=== PATIENT | male | born 1975 | race Hispanic/Latino ===

== ENCOUNTER 2021-12-02 10:17 | Emergency (ER) | payer SELFPAY ==
--- NOTE | 2021-12-02 13:10 | Emergency Department Report ---
- General Chief complaint: Skin/Abscess/Foreign Body Stated complaint: ABSCESS IN MOUTH Time Seen by Provider: 12/02/21 11:55 Source: patient Mode of arrival: Ambulatory Limitations: No Limitations - History of Present Illness Initial comments: Patient presents with right jaw abscess. Reports had that right lower tooth removed last week by Dr. Jordan HUFFMAN, and was told he needed to come to the emergency department. Patient reports has been having swelling in that area for about a week without improvement despite taking amoxicillin and ciprofloxacin. He denies fever or chills, no headache dizziness or vision changes, no nausea vomiting abdominal pain, he denies prior history of antibiotic resistance, Quality: stabbing, aching Consistency: constant Improves with: none Worsens with: none Associated symptoms: denies other symptoms - Related Data Previous Rx's Medication Instructions Recorded Last Taken Type Hydrocortisone 2.5% [Hytone 2.5% 1 applicatio TP TID #30 gm 10/05/14 Unknown Rx CREAM] Promethazine [Phenergan] 25 mg PO Q6H PRN #12 tablet 10/05/14 Unknown Rx Clindamycin [Clindamycin CAP] 300 mg PO Q8H 10 Days cap 12/02/21 Unknown Rx Ibuprofen [Motrin 800 MG tab] 800 mg PO Q8HR PRN #30 tablet 12/02/21 Unknown Rx Allergies Allergy/AdvReac Type Severity Reaction Status Date / Time No Known Allergies Allergy Verified 12/02/21 10:37 Abscess Boil HPI - HPI Chief Complaint: Skin/Abscess/Foreign Body Stated Complaint: ABSCESS IN MOUTH Time Seen by Provider: 12/02/21 11:55 Home Medications: Previous Rx's Medication Instructions Recorded Last Taken Type Hydrocortisone 2.5% [Hytone 2.5% 1 applicatio TP TID #30 gm 10/05/14 Unknown Rx CREAM] Promethazine [Phenergan] 25 mg PO Q6H PRN #12 tablet 10/05/14 Unknown Rx Clindamycin [Clindamycin CAP] 300 mg PO Q8H 10 Days cap 12/02/21 Unknown Rx Ibuprofen [Motrin 800 MG tab] 800 mg PO Q8HR PRN #30 tablet 12/02/21 Unknown Rx Allergies/Adverse Reactions: Allergies Allergy/AdvReac Type Severity Reaction Status Date / Time No Known Allergies Allergy Verified 12/02/21 10:37 ED Review of Systems ROS: Stated complaint: ABSCESS IN MOUTH Other details as noted in HPI Constitutional: no symptoms reported Eyes: as per HPI Respiratory: no symptoms reported. denies: cough Cardiovascular: denies: chest pain Gastrointestinal: denies: abdominal pain, nausea, vomiting Skin: denies: rash, lesions Neurological: denies: headache, weakness, paresthesias, confusion, abnormal gait ED Past Medical Hx - Surgical History Additional Surgical History: Bladder tumor removed - Social History Smoking Status: Current Every Day Smoker - Medications Home Medications: Home Medications Medication Instructions Recorded Confirmed Last Taken Type Hydrocortisone 2.5% [Hytone 2.5% 1 applicatio TP TID #30 gm 10/05/14 Unknown Rx CREAM] Promethazine [Phenergan] 25 mg PO Q6H PRN #12 tablet 10/05/14 Unknown Rx Clindamycin [Clindamycin CAP] 300 mg PO Q8H 10 Days cap 12/02/21 Unknown Rx Ibuprofen [Motrin 800 MG tab] 800 mg PO Q8HR PRN #30 tablet 12/02/21 Unknown Rx ED Physical Exam - General Limitations: No Limitations General appearance: alert, in no apparent distress - Head Head exam: Present: atraumatic (Abscess right jaw) - Expanded Head Exam Expanded 1 - 3.4 cm firm abscess, no fluctuance, does not extend to the posterior no airway involvement. No drooling - Eye Eye exam: Present: normal appearance, PERRL - ENT ENT exam: Present: mucous membranes moist - Expanded ENT Exam Expanded 1 - Other - Neck Neck exam: Present: normal inspection, full ROM. Absent: tenderness - Respiratory Respiratory exam: Present: normal lung sounds bilaterally - Cardiovascular Cardiovascular Exam: Present: regular rate - GI/Abdominal GI/Abdominal exam: Present: soft. Absent: distended, tenderness - Extremities Exam Extremities exam: Present: normal inspection, full ROM - Back Exam Back exam: Present: normal inspection, full ROM - Neurological Exam Neurological exam: Present: alert, oriented X3, CN II-XII intact, normal gait. Absent: motor sensory deficit - Psychiatric Psychiatric exam: Present: normal affect, normal mood - Skin Skin exam: Present: warm, dry, intact, normal color ED Course Vital Signs 12/02/21 12/02/21 10:32 18:35 Temperature 97.7 F 98.5 F Pulse Rate 84 96 H Respiratory 16 Rate Blood Pressure 121/70 131/86 [Right] O2 Sat by Pulse 100 100 Oximetry ED Medical Decision Making - Lab Data Result diagrams: 12/02/21 12:55 12/02/21 12:55 - Medical Decision Making Right jaw abscess, no localized area for drainage, already under the care of a dentist Dr. Ortega whom I spoke with, states will follow-up as patient already has patient scheduled on Sunday to see his surgeon. Have gone over the CT findings with him as well as labs and IV antibiotics which he agrees with. Otherwise at time of discharge patient is stable he is nontoxic-appearing he is afebrile he is ambulating steadily. Verbalized understanding of everything of discussed. Tolerating secretions oral intake and able to chew. Already has pain management at home, I added some clindamycin and ibuprofen. Patient remained stable nontoxic-appearing, afebrile, ambulating steadily without assistance. Gone over ED findings with patient as well as plan for follow-up. Also discussed return precautions with patient, all questions and concerns addressed. Patient is stable to be discharged follow-up outpatient. Audio voice dictation device used, hence the chart might contain some dictation errors, mispronunciations, wrong spelling and wrong verbiage. Critical care attestation.: If time is entered above; I have spent that time in minutes in the direct care of this critically ill patient, excluding procedure time. ED Disposition Clinical Impression: Dental abscess, Jaw pain Disposition: HOME / SELF CARE / HOMELESS Is pt being admited?: No Does the pt Need Aspirin: No Condition: Stable Instructions: Dental Abscess Additional Instructions: Make sure you follow-up with Dr. Melgar on Sunday he is already expecting the office. Start taking the prescribed clindamycin, warm compress, take your prescribed pain medications as well and do not hesitate to return to the ER if worsening pain, fever, difficulty swallowing or any other concerning symptoms. Prescriptions: Clindamycin [Clindamycin CAP] 300 mg PO Q8H 10 Days cap Ibuprofen [Motrin 800 MG tab] 800 mg PO Q8HR PRN #30 tablet PRN Reason: Pain, Moderate (4-6) Referrals: PRIMARY CARE, [Primary Care Provider] - 3-5 Days
--- NOTE | 2021-12-02 13:36 | Cat Scan Report ---
CT MAXILLOFACIAL WITH CONTRAST INDICATION / CLINICAL INFORMATION: right jaw swelling, fever,pain. TECHNIQUE: All CT scans at this location are performed using CT dose reduction for ALARA by means of automated e xposure control. Or graph contrast dose report: COMPARISON: None available. FINDINGS: ORAL CAVITY: An empty tooth socket is present at tooth #30 (right mandibular first molar). Additional ly noted is a cortical defect along the buccal surface of the mandible adjacent to this empty socket. Extensive soft tissue swelling is observed along the buccal side of the mandible in this location. I n addition there is a well-circumscribed low-attenuation collection along the inferior aspect of the mandible which measures about 2.9 x 1.3 cm in transverse dimension by 1.8 cm in superior-inferior dim ension. This represents an odontogenic abscess. Inflammatory change/phlegmon extends along the inferi or surface of the body of the mandible extending back up into the floor the mouth. SUPRAHYOID NECK: As noted above there is an odontogenic abscess along the inferior aspect of the body of the mandible on the right. There is adjacent thickening of the platysma muscle and infiltrative c hanges in the adjacent fat in the suprahyoid neck. FACIAL BONES: No fracture or other significant abnormality. Incidental os made of a small bony dehisc ence along the roof of the orbit on the left. A similar finding was present on previous study. TREATMENT MANAGER SPACES:Evaluation of the golf course keeper space structures reveal no abnormalities. SALIVARY GLANDS: Parotid and submandibular salivary glands have a normal appearance. PARANASAL SINUSES: No significant abnormality. NASAL CAVITY: No significant abnormality. ORBITS: Globes, optic nerves and extraocular muscles have an unremarkable appearance. TEMPORAL BONES:Visualized mastoid air cells and the middle ear cavities are normally pneumatized. VISUALIZED INTRACRANIAL STRUCTURES: Decreased brain parenchymal attenuation is observed in the anteri or poles of both frontal lobes. This finding has progressed in comparison to 11/23/2020. 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 Is there history of interval head injury since 11/23/2020 ADDITIONAL FINDINGS: None. IMPRESSION: 1. Odontogenic abscess is identified adjacent to the buccal surface of the body of the mandible on the right as described in detail above. 2. Interval development of decreased brain parenchymal attenuation and bilateral frontal lobe distrib ution. This has developed since head CT 12/24/2020. Is there history of head injury since prior study Signer Name: Reece Keller MD Signed: 12/02/2021 1:32 PM Workstation Name: [id number]
[2021-12-02 13:42] LABS: Basophils # (Auto) 0.1 K/mm3 (0.0-0.1); Basophils % (Auto) 0.4 % (0.0-1.8); Eosinophils # (Auto) 0.1 K/mm3 (0.0-0.4); Eosinophils % (Auto) 1.1 % (0.0-4.3); Hematocrit 48.7 % (35.5-45.6); Hemoglobin 16.3 gm/dl (11.8-15.2); Lymphocytes % (Auto) 7.9 % (13.4-35.0); Mean Corpuscular HGB Conc 33 % (32-34); Mean Corpuscular Volume 91 fl (84-94); Monocytes # (Auto) 1.3 K/mm3 (0.0-0.8); Monocytes % (Auto) 9.6 % (0.0-7.3); Platelet Count 266 K/mm3 (140-440); Red Blood Count 5.34 M/mm3 (3.65-5.03); Red Cell Distribution Width 13.8 % (13.2-15.2)
[2021-12-02 13:59] LABS: Blood Urea Nitrogen 13 mg/dL (9-20); Calcium 9.1 mg/dL (8.4-10.2); Hemolysis Index 146
[2021-12-02 14:00] LABS: BUN/Creatinine Ratio 22
[2021-12-02] MEDS ORDERED: ONDANSETRON 4 MG/2 ML INJ IV ONE (15:36)
[2021-12-02] MEDS ORDERED: MORPHINE 4 MG/1 ML INJ IV ONE (15:36)
[2021-12-02 18:46] VITALS: BP 131/86
== END 2021-12-02 18:46 | disposition home or self-care (01) ==
LOC: ED 10:17
DX: K04.7 Periapical abscess without sinus (principal); F17.200 Nicotine dependence, unspecified, uncomplicated; Z79.899 Other long term (current) drug therapy
CPT/HCPCS: 36415; 70487; 80048; 82140; 85025; 87040; 96365; 96375; 99284; J2270; J2405; J7502; Q9967